=== PATIENT | female | born 1970 | race Caucasian/White ===

== ENCOUNTER → 2017-03-13 | Outpatient (CLI) | payer BC | LOC: KOH-I 08:00 | DX: I82.90 Acute embolism and thrombosis of unspecified vein (principal); I82.409 Acute embolism and thrombosis of unspecified deep veins of unspecified lower extremity; I83.899 Varicose veins of unspecified lower extremity with other complications; I82.812 Embolism and thrombosis of superficial veins of left lower extremity; M79.89 Other specified soft tissue disorders | CPT/HCPCS: 93971 ==

== ENCOUNTER → 2021-03-13 | Outpatient (CLI) | payer BC, OTHER ==
[~2021-03-13] MED LIST: CITALOPRAM HBR20 MG PO; CLARITIN10 MG PO; CLEOCIN HCL300 MG PO; CORTIZONE-1057 GM TP; FLEXERIL 10 MG10 MG PO; LINZESS145 MCG PO; METFORMIN HCL500 MG PO; MUCINEX DM ER1 EACH PO; PREDNISONE 50 M50 MG PO; TOPROL XL 25 MG25 MG PO; VENTOLIN/PROVE0.5 ML INH; VISTARIL25 MG PO; VITAMIN B-1000 MCG/M IM; VOLTAREN EC 5050 MG PO; [UNRECOGNIZED DRUG - REMARK] IM
== END ==
LOC: SLEEP 14:28
DX: G47.33 Obstructive sleep apnea (adult) (pediatric) (principal); E66.01 Morbid (severe) obesity due to excess calories
CPT/HCPCS: 95811